=== PATIENT | female | born 1990 | race Caucasian/White ===

== ENCOUNTER 2016-12-28 22:02 | Emergency (ER) | payer BC ==
[~2016-12-28 22:02] MED LIST: ALPRAZOLAM0.25 M2 PO; ATIVAN1 MG PO; BACTRIM DS TABL1 TAB PO; CIPRO500 M2 PO; CYCLOBENZAPRINE10 M1 PO; LEVOTHYROXINE25 MC3 PO; NO HOME MEDICATION XX; NO HOME MEDS; NO MEDICATIONS; PROZAC PO; PYRIDIUM200 MG PO; SYNTHROID25 MCG PO; XANAX0.25 MG PO
[2016-12-28] MEDS ORDERED: VITAMIN D2000 UNIT PO (22:17)
== END 2016-12-28 23:17 ==
LOC: EDMED 22:02
DX: N63 Unspecified lump in breast (principal); Z98.890 Other specified postprocedural states